=== PATIENT | female | born 1995 | race American Indian/Alaskan Native ===

== ENCOUNTER 2017-01-24 16:16 | Emergency (ER) | payer SELFPAY ==
[2017-01-24] MEDS ORDERED: MOTRIN PO ONE (18:38)
[2017-01-24] MEDS ORDERED: ROXICODONE PO ONE (18:38)
--- NOTE | 2017-01-24 18:49 | Emergency Department Report ---
ED General Adult HPI - General Chief complaint: Dental/Oral Stated complaint: TOOTHACHE Time Seen by Provider: 01/24/17 18:39 Source: patient, RN notes reviewed Mode of arrival: Ambulatory Limitations: No Limitations - History of Present Illness Initial comments: This is a 22-year-old female. She is previously unknown to me. She does not have a local primary care doctor. She reports that she is not . Patient presents to the ER complaining of atraumatic dental pain since last night. The pain is on tooth #18. The pain is sharp. It increases with palpation. patient reports sensitivity to hot and cold. There is no stridor, trismus, malocclusion. No headache, neck pain, chest pain, abdominal pain or shortness of breath. -: Gradual Location: mouth Quality: aching Consistency: constant Improves with: rest Worsens with: eating Associated Symptoms: denies other symptoms - Related Data Previous Rx's Medication Instructions Recorded Last Taken Type Chlorhexidine Mouthwash [Peridex] 15 ml MM BID #1 bottle 01/24/17 Unknown Rx Ibuprofen [Motrin] 600 mg PO Q8H PRN #30 tablet 01/24/17 Unknown Rx oxyCODONE [Roxicodone] 5 mg PO Q6HR PRN #15 tablet 01/24/17 Unknown Rx Allergies Allergy/AdvReac Type Severity Reaction Status Date / Time No Known Allergies Allergy Unverified 01/24/17 16:52 ED Review of Systems ROS: Stated complaint: TOOTHACHE Other details as noted in HPI ENT: dental pain ED Past Medical Hx - Past Medical History Previous Medical History?: No - Surgical History Hx Appendectomy: Yes - Social History Smoking Status: Never Smoker Substance Use Type: Marijuana - Medications Home Medications: Home Medications Medication Instructions Recorded Confirmed Last Taken Type Chlorhexidine Mouthwash [Peridex] 15 ml MM BID #1 bottle 01/24/17 Unknown Rx Ibuprofen [Motrin] 600 mg PO Q8H PRN #30 tablet 01/24/17 Unknown Rx oxyCODONE [Roxicodone] 5 mg PO Q6HR PRN #15 tablet 01/24/17 Unknown Rx ED Physical Exam - General Limitations: No Limitations General appearance: alert, in no apparent distress - Head Head exam: Present: atraumatic, normocephalic - Eye Eye exam: Present: normal appearance, EOMI. Absent: nystagmus - ENT ENT exam: Present: normal exam, normal orophraynx, mucous membranes moist, TM's normal bilaterally, normal external ear exam, other (tooth #17 is tender to percussion. There is no redness, pus or streaking. There is no stridor. There is no elevation of the base of the tongue. The patient is speaking in full sentences.) - Neck Neck exam: Present: normal inspection, full ROM. Absent: tenderness, meningismus, lymphadenopathy - Respiratory Respiratory exam: Present: normal lung sounds bilaterally. Absent: respiratory distress, wheezes, rales, rhonchi, stridor, chest wall tenderness, accessory muscle use, decreased breath sounds, prolonged expiratory - Cardiovascular Cardiovascular Exam: Present: regular rate, normal rhythm, normal heart sounds. Absent: bradycardia, tachycardia, irregular rhythm, systolic murmur, diastolic murmur, rubs, gallop - GI/Abdominal GI/Abdominal exam: Present: soft, normal bowel sounds. Absent: distended, tenderness, guarding, rebound, rigid, pulsatile mass - Extremities Exam Extremities exam: Present: normal inspection, full ROM, normal capillary refill. Absent: pedal edema, joint swelling, calf tenderness - Back Exam Back exam: Present: normal inspection, full ROM. Absent: tenderness, CVA tenderness (R), CVA tenderness (L), muscle spasm, paraspinal tenderness, vertebral tenderness - Neurological Exam Neurological exam: Present: alert, oriented X3, normal gait, other (Extraocular movements intact. Tongue midline. No facial droop. Facial sensation intact to light touch in the V1, V2, V3 distribution bilaterally. 5 and 5 strength in 4 extremities.. Sensation is intact to light touch in 4 extremities.). Absent : motor sensory deficit - Psychiatric Psychiatric exam: Present: normal affect, normal mood - Skin Skin exam: Present: warm, dry, intact, normal color. Absent: rash ED Course Vital Signs 01/24/17 01/24/17 16:52 18:51 Temperature 98.4 F Pulse Rate 112 H Respiratory 16 16 Rate Blood Pressure 110/79 O2 Sat by Pulse 100 Oximetry ED Medical Decision Making - Lab Data Vital Signs - 24 hr 01/24/17 01/24/17 16:52 18:51 Temperature 98.4 F Pulse Rate 112 H Respiratory 16 16 Rate Blood Pressure 110/79 O2 Sat by Pulse 100 Oximetry - Medical Decision Making Differential diagnosis: Dentalgia, dental caries, poor dental hygiene Assessment and plan: 22-year-old female with pain on tooth #18. She is afebrile, with reassuring vital signs, her tachycardia has resolved, and she is speaking in full sentences. The importance of proper dental hygiene, including brushing teeth twice daily, flossing were reviewed with the patient, and she was also instructed as to importance of following up by annually for dental cleanings. Her tachycardia has resolved at this point in time, she is given a listing of low-cost dental clinics in the [facility], and she is discharged with pain medication, and chlorhexidine mouthwash. Return precautions are reviewed. Critical care attestation.: If time is entered above; I have spent that time in minutes in the direct care of this critically ill patient, excluding procedure time. ED Disposition Clinical Impression: Dentalgia Disposition: TO HOME OR SELFCARE Is pt being admited?: No Does the pt Need Aspirin: No Condition: Stable Instructions: Dental Abscess (ED), Toothache (ED) Additional Instructions: Take the medications as directed. Follow up with a dentist as soon as possible. Return to the ER right away with fevers, chills, chest pain, shortness of breath, intractable nausea or vomiting, inability to tolerate liquid feeds, inability to speak, and ability to breathe. Prescriptions: Chlorhexidine Mouthwash [Peridex] 15 ml MM BID #1 bottle Ibuprofen [Motrin] 600 mg PO Q8H PRN #30 tablet PRN Reason: Pain oxyCODONE [Roxicodone] 5 mg PO Q6HR PRN #15 tablet PRN Reason: Pain Referrals: [facility] [Outside] - 3-5 Days
[2017-01-24 19:27] VITALS: BP 110/80
== END 2017-01-24 19:30 | disposition home or self-care (01) ==
LOC: ED 16:16
DX: K08.89 Other specified disorders of teeth and supporting structures (principal); F12.10 Cannabis abuse, uncomplicated
CPT/HCPCS: 99282

== ENCOUNTER 2017-01-27 03:14 | Emergency (ER) | payer SELFPAY | END 2017-01-27 06:00 | disposition left against medical advice (07) | LOC: ED 03:14 | DX: K08.89 Other specified disorders of teeth and supporting structures (principal); Z53.21 Procedure and treatment not carried out due to patient leaving prior to being seen by health care provider ==

== ENCOUNTER 2017-05-24 12:43 | Emergency (ER) | payer OTHER ==
--- NOTE | 2017-05-24 14:45 | XRay Report ---
FINAL REPORT EXAM: XR CHEST ROUTINE 2V HISTORY: chest congestion TECHNIQUE: Two view chest PA and lateral PRIORS: None. FINDINGS: Cardiac and mediastinal contours are unremarkable. No focal pulmonary infiltrate is identified. No pleural fluid collection seen. Pulmonary vasculature is unremarkable. IMPRESSION: Negative two-view chest
--- NOTE | 2017-05-24 15:10 | Emergency Department Report ---
HPI - General Chief Complaint: Upper Respiratory Infection Time Seen by Provider: 05/24/17 14:11 - HPI HPI: Patient is a 22-year-old male presents to ED complaining of cough fever and body aches 4 days. Patient's gait fever began on Friday afternoon. Presents since cough is began the next day after that. She describes cough as intermittent productive with green mucus. She admits generalized bodyaches. She denies any recent travels or sick contacts.. She denies any drug allergies taking any medications. She denies nausea/vomiting/abdominal pain/chest pain/shortness of breath chest, dizziness ED Past Medical Hx - Past Medical History Previous Medical History?: No - Surgical History Hx Appendectomy: Yes - Social History Smoking Status: Never Smoker Substance Use Type: None - Medications Home Medications: Home Medications Medication Instructions Recorded Confirmed Last Taken Type Chlorhexidine Mouthwash [Peridex] 15 ml MM BID #1 bottle 01/24/17 Unknown Rx oxyCODONE [Roxicodone] 5 mg PO Q6HR PRN #15 tablet 01/24/17 Unknown Rx D-Methorphan/PE/Acetaminophen 1 each PO Q6H #30 tablet 05/24/17 Unknown Rx [Tylenol Cold Multi-Symp Caplet] Ibuprofen [Motrin 600 MG tab] 600 mg PO Q8H PRN #30 tablet 05/24/17 Unknown Rx guaiFENesin ER [Mucinex ER] 600 mg PO Q12H #20 tablet.er 05/24/17 Unknown Rx ED Review of Systems ROS: Stated complaint: SOB/DIZZINESS Other details as noted in HPI Constitutional: denies: chills, fever Eyes: denies: eye pain, eye discharge, vision change ENT: congestion. denies: ear pain, throat pain, dental pain, hearing loss Respiratory: cough. denies: shortness of breath, wheezing Cardiovascular: denies: chest pain, palpitations Endocrine: no symptoms reported Gastrointestinal: melena. denies: abdominal pain, nausea, vomiting, diarrhea, constipation Genitourinary: denies: urgency, dysuria, frequency, discharge Musculoskeletal: denies: back pain, joint swelling, arthralgia Skin: denies: rash, lesions, pruritus Neurological: headache (generalized mild). denies: weakness, numbness, paresthesias, confusion Psychiatric: denies: anxiety, depression Hematological/Lymphatic: denies: easy bleeding, easy bruising Physical Exam - Physical Exam Vital Signs: Vital Signs 05/24/17 13:16 Temperature 98.3 F Pulse Rate 88 Respiratory 16 Rate Blood Pressure 116/69 O2 Sat by Pulse 100 Oximetry Physical Exam: GENERAL: Alert and oriented x3, no apparent distress, Normal Gait, atraumatic. HEAD: Head is normocephalic and a-traumatic. EYES: Extra ocular muscles are intact. Pupils are equal, round, and reactive to light and accommodation. EARS: symetrical, atraumatic, non tender, ear canal clear and moderate cerumen, tympanic membrance non inflamed. gross auditory nml bilaterally. NOSE: Nose symetrical, Nontender,Nares appeared normal. MOUTH:Mouth is well hydrated and without lesions. Tonsils nonerythematous or swollen, Uvula midline, Tongue not elevated. Mucous membranes are moist. Posterior pharynx clear, no exudate or lesions. Patent airways. NECK: Supple. Non edematous, No carotid bruits. No lymphadenopathy or thyromegaly. No C-spine tenderness LUNGS: Symetrical with respiration, No wheezing, no rales or crackles, CTAB. HEART: S1, S2 present, regular rate and rhythm without murmur, no rubs, no gallops. Non tender to palpation ABDOMEN: No organomegaly was noted,Positive bowel sounds, soft, and non- distended. . Nontender to palpation on all Quadrants, NO CVA tenderness. . SKIN: Warm and dry, No lesions, No ulceration or induration present. ED Course Vital Signs 05/24/17 13:16 Temperature 98.3 F Pulse Rate 88 Respiratory 16 Rate Blood Pressure 116/69 O2 Sat by Pulse 100 Oximetry ED Medical Decision Making - Radiology Data Radiology results: report reviewed, image reviewed FINAL REPORT EXAM: XR CHEST ROUTINE 2V HISTORY: chest congestion TECHNIQUE: Two view chest PA and lateral PRIORS: None. FINDINGS: Cardiac and mediastinal contours are unremarkable. No focal pulmonary infiltrate is identified. No pleural fluid collection seen. Pulmonary vasculature is unremarkable. IMPRESSION: Negative two-view chest Transcribed By: SUSAN Dictated By: JOSE ESCOTO MD Electronically Authenticated By: JOSE ESCOTO MD Signed Date/Time: 05/24/17 1041 - Medical Decision Making 22-year-old presents with influenza. Course: Patient received prednisone side of all Robitussin and ED Influenza A & B cultures ordered, chest x-ray ordered Chest x-ray normal findings no abnormal findings Influenza A is a positive I discussed his findings with the face extremities discussed with the patient to rest medication as prescribed. I discussed the patient and she is passed to 24-48 hour window and cannot do Tamiflu any longer. I discussed the patient's into proper rest, plenty of vitamin C, she has a different body aches, Discussed the patient flow will pass within 7-14 days. Vitals Signs are normal patient is in no acute or respiratory distress. Critical care attestation.: If time is entered above; I have spent that time in minutes in the direct care of this critically ill patient, excluding procedure time. ED Disposition Clinical Impression: Influenza A Disposition: - TO HOME OR SELFCARE Is pt being admited?: No Does the pt Need Aspirin: No Condition: Stable Instructions: Influenza (ED), Viral Syndrome (ED), Upper Respiratory Infection (ED) Additional Instructions: Make sure to follow up with the primary care physician as discussed. Take all your medications as you've been prescribed. If you have any worsening symptoms or develop new symptoms please return to ED immediately. U have the flu virus. Toes are resolve in 7-14 days. Take plenty of fluids daily, vitamin C, rest Prescriptions: D-Methorphan/PE/Acetaminophen [Tylenol Cold Multi-Symp Caplet] 1 each PO Q6H # 30 tablet guaiFENesin ER [Mucinex ER] 600 mg PO Q12H #20 tablet.er Ibuprofen [Motrin 600 MG tab] 600 mg PO Q8H PRN #30 tablet PRN Reason: Pain Referrals: PRIMARY CARE, [Primary Care Provider] - 3-5 Days [facility] [Outside] - 3-5 Days [facility] [Outside] - 3-5 Days [facility] [Outside] - 3-5 Days Forms: Work/School Release Form(ED) Time of Disposition: 15:44
[2017-05-24] MEDS ORDERED: ROBITUSSIN PO ONE (15:18)
[2017-05-24] MEDS ORDERED: DELTASONE PO ONE (15:18)
[2017-05-24] MEDS ORDERED: TYLENOL PO ONE (15:19)
[2017-05-24 16:04] VITALS: BP 118/72
== END 2017-05-24 16:05 | disposition home or self-care (01) ==
LOC: ED 12:43
DX: J09.X2 Influenza due to identified novel influenza A virus with other respiratory manifestations (principal)
CPT/HCPCS: 71020; 87400; 99283; J7512